=== PATIENT | female | born 1945 | race Caucasian/White ===

== ENCOUNTER 2020-11-29 00:43 | Observation (INO) ==
[2020-11-29] MEDS ORDERED: Naloxone 0.4 MG/ML INJ IVP PRN (08:04)
[2020-11-29] MEDS ORDERED: Ondansetron 4 MG/2 ML VIAL IVP PRN (08:04)
[2020-11-29] MEDS ORDERED: Dextrose Gel 15 GM/37.5 ML TUBE PO PRN ×2 (09:34)
[2020-11-29] MEDS ORDERED: D5% in Water 1,000 ML IVC PRN (09:34)
[2020-11-29] MEDS ORDERED: *HR* Dextrose 50 % in Water (Vial) 50 ML VIAL IVP PRN (09:34)
[2020-11-29 10:54] LABS: Basophils % 0.3 %; Hemoglobin 7.1 g/dL (11.5-15.4)
[2020-11-29 10:56] LABS: Eosinophils # 0.2 K/mcL (0.0-0.6); Eosinophils % 2.5 %; Hematocrit 25.6 % (35.3-44.9); Immature Granulocytes % 0.6 % (0-4); Lymphocytes # 2.1 K/mcL (0.6-4.6); Lymphocytes % 26.1 %; Mean Corpuscular HGB Conc 27.7 g/dL (31.6-35.5); Mean Corpuscular Hemoglobin 23.4 pg (28.0-33.3); Mean Corpuscular Volume 84.5 fL (83.0-100.0); Mean Platelet Volume 11.9 fL (9.4-12.4); Monocytes # 0.5 K/mcL (0.0-1.3); Monocytes % 6.8 %; Neutrophils # 5.1 K/mcL (1.6-8.9); Nucleated Red Blood Cells 0.4 /100 WBC (0); Platelet Count 201 K/mcL (140-400); Red Blood Count 3.03 M/mcL (3.82-4.97); Red Cell Distribution Width 19.3 % (11.5-14.5); Segmented Neutrophils % 63.7 %
[2020-11-29 11:14] LABS: Magnesium 2.1 mg/dL (1.6-2.6); Phosphorous 2.9 mg/dL (2.7-4.5)
[2020-11-29 11:17] LABS: BUN/Creatinine Ratio 13 (6-26); Blood Urea Nitrogen 14 mg/dL (8-23); Calcium 8.5 mg/dL (8.6-10.3); Carbon Dioxide 25 mEq/L (23-29); Chloride 106 mEq/L (98-107); Glucose 91 mg/dL (70-105); Iron 12 mcg/dL (50-170); Osmolality,Calculated 290 (280-300); Sodium 140 mEq/L (136-145); eGFR For African Americans > 60 (> 60); eGFR For Non-African Americans 52 (> 60)
[2020-11-29 11:26] LABS: Anisocytosis 1+ (Not Present); Hypochromasia Present (Not Present); Platelet Estimate Normal (Normal)
[2020-11-29 11:32] LABS: Ferritin 17 ng/mL (10-120)
[2020-11-29 11:38] LABS: Folate 11.3 ng/mL (3.0-16.0)
[2020-11-29] MEDS ORDERED: Iron Sucrose Complex 400 MG in 0.9 % Sodium Chloride 250 ML IVPB ONE (12:32)
[2020-11-29 16:47] LABS: Hematocrit 22.9 % (35.3-44.9); Hemoglobin 6.6 g/dL (11.5-15.4)
[2020-11-29 16:58] LABS: Estimated Average Glucose 117 mg/dl; Hemoglobin A1C 5.7 %
[2020-11-29] MEDS ORDERED: Nystatin POWDER 30 GM BOTTLE TP PRN (17:35)
[2020-11-29] MEDS ORDERED: MOM Conc 10 ML UD.LIQ PO PRN (17:35)
[2020-11-29] MEDS ORDERED: Nitroglycerin 0.4 MG TAB.SUBL SL PRN (17:35)
[2020-11-29] MEDS ORDERED: calcitrioL 0.25 MCG CAPSULE PO SCH (17:45)
[2020-11-29] MEDS: Piperacillin/Tazobactam 3.375 GM in 0.9 % Sodium Chloride Mini Bag 100 ML IVPB SCH ×2 (18:49→23:22)
[2020-11-29] MEDS: Pantoprazole 40 MG VIAL IVP SCH ×2 (18:51→18:54)
[2020-11-29] MEDS: Insulin LISPRO 300 UNITS/3 ML VIAL SUBQ SCH ×2 (18:52→18:53)
[2020-11-29] MEDS: Lactulose Oral Soln 20 GM/30 ML UDC PO SCH ×2 (18:52→22:07)
[2020-11-29] MEDS ORDERED: traZODone 50 MG TABLET PO SCH (21:00)
[2020-11-29] MEDS ORDERED: Lactulose Oral Soln 20 GM/30 ML UDC PO SCH (21:00)
[2020-11-29] MEDS ORDERED: Sennosides/Docusate Sodium TABLET PO SCH (21:00)
[2020-11-29] MEDS ORDERED: Iron Polysaccharide Complex 150 MG CAPSULE PO SCH (21:00)
[2020-11-29 21:23] LABS: % Iron Saturation 3 % (15-50); Transferrin 287 mg/dL (203-362)
[2020-11-29] MEDS: rOPINIRole 1 MG TABLET PO SCH (22:07)
[2020-11-29] MEDS: Pregabalin 50 MG CAPSULE PO SCH (22:07)
[2020-11-29] MEDS ORDERED: 0.9 % Sodium Chloride 250 ML ONE (22:45)
[2020-11-30] MEDS ORDERED: Vancomycin 1,250 MG/262.5 ML IV.SOLN IVPB SCH (02:00)
[2020-11-30 04:56] LABS: Hematocrit 24.5 % (35.3-44.9); Hemoglobin 7.4 g/dL (11.5-15.4); Mean Corpuscular HGB Conc 30.2 g/dL (31.6-35.5); Mean Corpuscular Hemoglobin 25.4 pg (28.0-33.3); Mean Corpuscular Volume 84.2 fL (83.0-100.0); Mean Platelet Volume 12.3 fL (9.4-12.4); Platelet Count 179 K/mcL (140-400); Red Blood Count 2.91 M/mcL (3.82-4.97); Red Cell Distribution Width 18.8 % (11.5-14.5); White Blood Count 7.5 K/mcL (4.3-11.1)
[2020-11-30 05:16] LABS: Potassium 4.1 mEq/L (3.5-5.1)
[2020-11-30] MEDS: Pantoprazole 40 MG VIAL IVP SCH ×2 (06:14→17:41)
[2020-11-30] MEDS: Insulin LISPRO 300 UNITS/3 ML VIAL SUBQ SCH ×3 (08:19→16:14)
[2020-11-30] MEDS ORDERED: Furosemide 40 MG TABLET PO SCH (09:00)
[2020-11-30] MEDS ORDERED: (Mirabegron [Myrbetriq] 25 MG Tab.Er.24h) PO SCH (09:00)
[2020-11-30] MEDS ORDERED: Aspirin Enteric Coated 81 MG Tablet PO SCH (09:00)
[2020-11-30] MEDS ORDERED: Isosorbide MONOnitrate (24 HR) 60 MG TAB.ER.24H PO SCH (09:00)
[2020-11-30] MEDS ORDERED: Budesonide/Formoterol 80/4.5 1 PUFF INH IH SCH (09:00)
[2020-11-30] MEDS: Pregabalin 50 MG CAPSULE PO SCH ×2 (09:18→15:23)
[2020-11-30] MEDS: Lactulose Oral Soln 20 GM/30 ML UDC PO SCH (09:18)
[2020-11-30] MEDS: Piperacillin/Tazobactam 3.375 GM in 0.9 % Sodium Chloride Mini Bag 100 ML IVPB SCH ×2 (09:18→15:22)
[2020-11-30] MEDS: rOPINIRole 1 MG TABLET PO SCH (09:19)
[2020-11-30 19:34] VITALS: BP 134/67; PULSE 84; TEMP 98.6; O2SAT 92
== END 2020-11-30 20:52 ==
LOC: 3NENU
PROVIDERS: ADMIT Internal Medicine; ATTEND Internal Medicine